=== PATIENT | female | born 1955 | race Caucasian/White ===

== ENCOUNTER 2023-04-16 10:46 | Emergency (ER) | payer SELFPAY ==
[~2023-04-16] VITALS: Ht 152.4 cm; Wt 63.6 kg
[2023-04-16 10:49] VITALS: BP 204/109; PULSE 84; RESP 16; TEMP 97.7; O2SAT 98
== END 2023-04-16 18:46 | disposition left against medical advice (07) ==
LOC: ER 10:47
DX: R51.9 Headache, unspecified (principal); Z53.21 Procedure and treatment not carried out due to patient leaving prior to being seen by health care provider
CPT/HCPCS: 99281